=== PATIENT | female | born 1935 | race Caucasian/White ===

== ENCOUNTER → 2017-07-08 | Outpatient (CLI) | payer MEDICARE, OTHER ==
[~2017-07-08] MED LIST: ALEN70TA3 PO; FURO-93 PO; HYDR-3307 PO; LOVA20TA2 PO; OMNIPAQUE 350 MG/ML, 75ML BOTTLE ONE; POTA20TA6 PO; VIT1TABL32 PO
== END | disposition home or self-care (01) ==
LOC: CFH 09:38
PROVIDERS: ATTEND Internal Medicine Cardiovascular Disease
DX: R91.8 Other nonspecific abnormal finding of lung field (principal); E04.2 Nontoxic multinodular goiter; K76.89 Other specified diseases of liver
CPT/HCPCS: 71260; Q9967